=== PATIENT | female | born 1950 | race Caucasian/White ===

== ENCOUNTER 2016-06-01 06:17 | Emergency (ER) | payer OTHER, BC ==
[2016-06-01 06:34] VITALS: BP 149/66
[2016-06-01] MEDS ORDERED: ONDANSETRON 4 MG TAB.RAPDIS PO ONE (06:44)
[2016-06-01] MEDS ORDERED: ONDANSETRON 4 MG TAB.RAPDIS ONE (06:45)
--- NOTE | 2016-06-01 07:23 | ERNOTE ---
Head Injury HPI - General Injury to: head Time Seen by Provider: 06/01/16 06:47 Source: patient Exam Limitations: no limitations - Immun/Allergies/Home Medications Immunization: IMMUNIZATION HX History of Influenza Vaccine No Hx Pneumococcal Vaccination Yes Allergies/Adverse Reactions: Allergies Allergy/AdvReac Type Severity Reaction Status Date / Time No Known Allergies Allergy Verified 06/01/16 06:34 Home Medications: HOME MEDICATIONS Aspirin [Aspirin EC] 81 mg PO HS 12/17/15 [Last Taken 12/16/15] Atorvastatin Calcium 10 mg PO HS 12/17/15 [Last Taken 12/16/15] Hydrochlorothiazide [Hydrodiuril] 25 mg PO DAILY 12/17/15 [Last Taken 12/17/15] Metoprolol Tartrate [Lopressor] 25 mg PO BID 12/17/15 [Last Taken 12/17/15] Nabumetone [Relafen] 500 mg PO BID 12/17/15 [Last Taken 12/17/15] - History of Present Illness Narrative: Walking in the yard at work at [employer] and slipped and hit her head. c/o dizziness and nausea Occurred: this morning Location Occurred: work Severity: mild, moderate Head Injury Location: occipital Method of Injury: Reports: fell Reason for Fall: Reports: slipped Loss of Consciousness: Reports: no loss of consciousness Associated Symptoms: Reports: nausea Review of Systems - Review of Systems Constitutional: Absent: recent illness EYE: Absent: double vision, vision changes ENT: Present: no symptoms reported Respiratory: Present: no symptoms reported Cardiology: Present: no symptoms reported Gastrointestinal/Abdominal: Present: no symptoms reported Genitourinary: Present: no symptoms reported Musculoskeletal: Present: See HPI, other - occipital pain. Absent: back pain, neck pain Neurological: Present: See HPI Endocrine: Present: no symptoms reported Hematologic/Lymphatic: Present: no symptoms reported Psych: Present: no symptoms reported - Patient's Past Medical History Patient History - Medical: No pertinent hx Patient History - Cardiac/Respiratory: Hypertension Patient History - Cancer: Breast Patient History - Surgical Procedures: Cholecystectomy, Other - Social History Living Situations: home Physical Exam - Physical Exam General Appearance: Present: wd/wn, alert, no apparent distress Eye Exam: Normal inspection: bilateral, PERRL: bilateral, EOMI: bilateral Ears, Nose, Throat: Present: normal ENT inspection, hearing grossly normal Neck: Present: normal inspection, nontender, supple Respiratory: Present: no respiratory distress, no accessory muscle use Back Exam: Present: normal inspection, normal range of motion, no vertebral tenderness Extremity Exam: Present: other - minmal tenderness of left forearm. no point tenderness Neurological Exam: Present: alert, oriented, normal mood/affect, no motor/ sensory deficits, joint creaser II-XII nml as tested Skin Exam: Present: normal color, warm/dry, other - hematoma/ abrasion on superior occipital scalp. no tenderness around the location ED Progress - Vital Signs Vital Signs: Vital Signs 06/01/16 06:29 Temperature 36.8 C Pulse Rate 53 L Blood Pressure 149/66 O2 Sat by Pulse 96 Oximetry - Progress/Reassessment Chief Complaint: Head Injury Progress Note-Subjective: 06/01/16 07:20 I did discuss with the patient and co-worker that brought her in that she would not need a CT of her head for this injury. They were a little bit skeptical but seemed to accept the explanation of her having no neurologic abnormalities Departure Clinical Impression: Head injury, acute, without loss of consciousness Qualifiers: Encounter type: initial encounter Qualified Code(s): S09.90XA - Unspecified injury of head, initial encounter - Departure Disposition: Home Follow Up Needed Condition: Good Instructions: Hematoma, [id number] Additional Instructions: See occupational health in the next few days to check on your progress. Watch for confusion, numbness or tingling Referrals: Elizabeth Lowe, TITLE CAMERA OPERATOR [Primary Care Provider] -
== END 2016-06-01 07:24 | disposition home or self-care (01) ==
LOC: ER 06:17
DX: S09.90XA Unspecified injury of head, initial encounter (principal); Z85.3 Personal history of malignant neoplasm of breast; Z90.49 Acquired absence of other specified parts of digestive tract; I10 Essential (primary) hypertension; W01.0XXA Fall on same level from slipping, tripping and stumbling without subsequent striking against object, initial encounter; Y93.01 Activity, walking, marching and hiking; Y92.147 Courtyard of prison as the place of occurrence of the external cause; Y99.0 Civilian activity done for income or pay

== ENCOUNTER 2016-06-02 09:33 | Emergency (ER) | payer OTHER, BC ==
[2016-06-02 10:01] LABS: Hematocrit 41.6 % (37.0-47.0); Hemoglobin 14.2 gm/dL (12.5-16.0); Mean Cell Volume 85.4 fl (78-100); Mean Corpuscular Hemoglobin 29.2 pg (27-31); Mean Corpuscular Hgb Conc 34.1 g/dl (32-36); Neutrophil # 8.4 K/mm3 (1.3-6.0); Neutrophil % 74.1 % (42-75.0); Platelet Count 273 K/mm3 (150-450); Red Blood Count 4.87 M/mm3 (4.2-5.4); White Blood Count 11.3 K/mm3 (4.0-10.5)
[2016-06-02 10:13] LABS: INR 1.05 INR (0.90-1.10); Partial Thrombolplastin Time 26.1 Seconds (24-32); Prothrombin Time (Patient) 10.9 Seconds (9.4-11.4)
[2016-06-02 10:28] LABS: ALT 22 U/L (19-67); AST 16 U/L (0-48); Albumin * 3.3 gm/dl (3.4-5.0); Alkaline Phosphatase * 71 U/L (50-170); Anion Gap 14.8 mmol/L (6.8-13.8); Blood Urea Nitrogen 23 mg/dL (3-23); Ca. Corrected For Albumin 9.3 mg/dL (8.4-10.2); Calcium * 9.1 mg/dL (7.9-10.9); Carbon Dioxide 26.6 mmol/L (24-32.6); Chloride 102 mmol/L (97-106); Glucose * 199 mg/dL (70-110); Potassium 3.4 mmol/L (3.4-4.6); Sodium 140 mmol/L (132-142); Total Protein 7.4 gm/dL (6.2-8.2); Troponin I Less than 0.017 ng/ml (0.00-0.10)
--- NOTE | 2016-06-02 10:47 | ERNOTE ---
Dizziness ER Record Date of Service: 06/02/16 Presenting Symptoms: dizziness Time Seen by Provider: 06/02/16 09:36 Source: patient Exam Limitations: no limitations Immunizations: IMMUNIZATION HX Immunizations Up to Date Yes History of Influenza Vaccine Yes Hx Pneumococcal Vaccination Yes Allergies/Adverse Reactions: Allergies Allergy/AdvReac Type Severity Reaction Status Date / Time No Known Allergies Allergy Verified 06/01/16 06:34 Home Medications: HOME MEDICATIONS Aspirin [Aspirin EC] 81 mg PO HS 12/17/15 [Last Taken 12/16/15] Atorvastatin Calcium 10 mg PO HS 12/17/15 [Last Taken 12/16/15] Hydrochlorothiazide [Hydrodiuril] 25 mg PO DAILY 12/17/15 [Last Taken 12/17/15] Metoprolol Tartrate [Lopressor] 25 mg PO BID 12/17/15 [Last Taken 12/17/15] Nabumetone [Relafen] 500 mg PO BID 12/17/15 [Last Taken 12/17/15] Calcium Carbonate [Tums] 500 mg PO DAILY 06/02/16 [Last Taken Unknown] Potassium Chloride [K-Dur] 20 meq PO DAILY 06/02/16 [Last Taken Unknown] - History of Present Illness Narrative: Patient comes after a fall and hitting her head on the cement. Patient reported no LOC, no chest pain, and changes on vision. Patient informed that her condition gets worse with she gets up or move her head. At the moment patient denies any loss of force or sensation Date (Duration): 06/01/16 Timing and Duration: still present, intermittent Noted on awakening:: Yes Severity: max: moderate Severity: currently: moderate Associated Symptoms: Present: nausea, other - Sence of rotation and moving. Absent: hearing loss, ringing/roaring in ear, ear pain, vomiting, headache, weakness, numbness, sweating, light headedness, sense of confusion Sense of movement: Present: spinning Fainted/near fainted while:: Absent: standing, sitting, supine Decreased ability to stand/walk:: Present: off balance. Absent: weak, cannot walk, falling, bed-ridden, unable to sit Usually:: Present: walks w/o assistance Modifying Factors - (Improves): Reports: other - rest and avoiding moving her head. Denies: changing position, movement of head, standing position Modifying Factors - (Worsens): Reports: changing position, movement of head, standing position Prior Treament: Reports: recently seen - Patient was seen at the ER and was discharged Review of Systems - Review of Systems Constitutional: Present: malaise. Absent: fever, chills, diaphoresis, weakness EYE: Absent: double vision ENT: Absent: ear pain, ear discharge, pulling on ears, nose pain, nose congestion, nasal drainage, sore throat Respiratory: Absent: shortness of breath, cough, orthopnea, wheezing Cardiology: Absent: chest pain, palpitations, syncope, edema, claudication Gastrointestinal/Abdominal: Absent: nausea, vomiting, diarrhea Genitourinary: Present: no symptoms reported Musculoskeletal: Present: muscle pain - Patient with , muscle stiffness. Absent : neck pain, joint pain, joint swelling Neurological: Present: headache, dizziness/light-headedness. Absent: seizure Endocrine: Present: no symptoms reported Hematologic/Lymphatic: Absent: easy bruising, easy bleeding Psych: Absent: anxiety, depressed - Patient's Past Medical History Patient History - Medical: No pertinent hx Patient History - Cardiac/Respiratory: Hypertension Patient History - Cancer: Breast Patient History - Surgical Procedures: Cholecystectomy, Other - Social History Living Situations: home Physical Exam - Physical Exam General Appearance: Present: alert, no apparent distress, obese. Absent: lethargic Eye Exam: Normal inspection: bilateral, PERRL: bilateral, EOMI: bilateral Ears, Nose, Throat: Present: normal ENT inspection, hearing grossly normal, normal pharynx Neck: Present: normal inspection, nontender, supple, full range of motion. Absent: carotid bruit Respiratory: Present: no respiratory distress, normal breath sounds, no accessory muscle use, chest nontender, lungs clear Cardiovascular/Chest: Present: regular rate, rhythm, normal peripheral pulses, systolic murmur Peripheral Pulses: N=norm/S=strong/W=weak/B=bound/A=absent: Carotid (R): Normal , Carotid (L): Normal, Radial (R): Normal, Radial (L): Normal, Dorsalis-pedis (R ): Normal, Dorsalis-pedis (L): Normal Gastrointestinal/Abdominal: Present: normal bowel sounds, nontender, nondistended, no organomegaly Back Exam: Present: normal inspection, normal range of motion, no CVA tenderness , no vertebral tenderness Neurological Exam: Present: alert, oriented, normal mood/affect, no motor/ sensory deficits, coding analyst II-XII nml as tested, other - +[place], +Nystagmus Vertical. Absent: facial droop, motor weakness, disoriented to person, disoriented to time, disoriented to place, disoriented to situation DTR: N=norm/NB=norm/brisk/A=abs/DD=dull/dimin/HC=hyperactive: Bicep (R): Normal , Bicep (L): Normal, Knee (R): Normal, Knee (L): Normal Skin Exam: Absent: diaphoresis, cyanosis, jaundice, pallor, skin rash Lymphatic Exam: Present: no adenopathy ED Progress - Date and Time Seen: Date and Time: 06/02/16 10:41 GCS: 15/15 NIH Stroke Scale: 0 Patient with at the moment was found with an intra cranial bleed and subdural hematoma. Patient's case was presented to Dr. Richard Ramírez at the . Patient at the moment is stable for transfer. - Results and Orders Patient's Lab Results:: I have reviewed the patient's lab results. Results and Orders: Normal coagulation, CBC, and CMP - Vital Signs Patient's Vital Signs:: I have reviewed the patient's vital signs. Vital Signs: Vital Signs 06/02/16 06/02/16 06/02/16 07:58 09:37 09:56 Temperature 36.5 C Pulse Rate 70 66 Respiratory 16 Rate Blood Pressure 149/66 131/69 O2 Sat by Pulse 97 Oximetry - EKG EKG: NSR EKG read: Interp. by me EKG Comments: HR: 66, LAD, LVH, No ST Elevation, No change from previous EKG - X-Ray X-Ray #1 X-Ray: chest X-ray Comments: No pathology reported by radiology - CT/Ultrasound CT/Ultrasound Narrative: CT report was noticed. Patient has a positive bleed. - Progress/Reassessment Chief Complaint: Dizziness Progress:: Unchanged - Transfer of Care Expected Disposition: Transfer Plan - Plan Plan: Transfer for Neurosurgical Services at the Departure Clinical Impression: Subdural hematoma, Intracranial bleed - Departure Disposition: [facility] Condition: Stable Referrals: Elizabeth Lowe, AUTOMOBILE BUMPER STRAIGHTENER [Primary Care Provider] -
[2016-06-02 11:07] VITALS: BP 150/70
== END 2016-06-02 11:25 | disposition short-term general hospital (02) ==
LOC: ER 09:33
DX: S06.5X0A Traumatic subdural hemorrhage without loss of consciousness, initial encounter (principal); W19.XXXA Unspecified fall, initial encounter

== ENCOUNTER 2017-04-18 08:08 | Day surgery (SDC) | payer BC ==
[~2017-04-18 08:08] MED LIST: RINGER'S SOLUTION,LACTATED 1,000 ML IV PRN; ceFAZolin SODIUM 1 GM VIAL IV PRN
[2017-04-18] MEDS ORDERED: RINGER'S SOLUTION,LACTATED 1,000 ML IV ONE (08:45)
[2017-04-18] MEDS ORDERED: BUPIVACAINE HCL 50 ML VIAL IJ ONE (09:19)
--- NOTE | 2017-04-18 09:34 | OR ---
Operative Report - Dictated Report Narrative: Date: 04/18/2017 Physician: Wisam Kaba M.D. Metal Fabricator: Sam Leal PA-C Preoperative diagnosis: Left trigger thumb Postoperative diagnosis: Left trigger thumb Procedure: Left thumb A1 ulices release Anesthesia: MAC Plus local Complications: None Estimated blood loss: Minimal Tourniquet time: 9 Minutes @ 250 mmHg Specimens: None Retained implants: None Drains: None Indications: Leticia Is a 66 year-old female who has been followed in my clinic with complaints of trigger finger. Physical exam as demonstrated triggering of the finger. Conservative measures have failed including but not limited to passage of time, activity modification, medications, and injections. The risks, benefits, and alternatives were discussed in clinic. The risks being bleeding, infection, nerve, tendon, blood vessel injury, persistent pain, wound competitions, need for additional procedures, and persistent symptoms. Consent was obtained in the clinic. Procedure: After marking the correct extremity in the preoperative holding area, a timeout was performed in the operating room. IV antibiotics consisting of 2 g of Ancef were administered prior to the procedure. A well-padded tourniquet was applied to the operative upper arm. The arm was exsanguinated and the tourniquet was inflated to 250 mmHg. 0.5% Marcaine without epinephrine was infused into the projected incision site at the palmar flexion crease over the metacarpal phalangeal joint in line with the digit. Using loupe magnification, a transverse incision in the appropriate palmar flexion crease in line with the digit. Blunt dissection was carried down through the subcutaneous tissues using bipolar cautery for hemostasis. Care was taken to protect the digital nerves. Staying midline along the flexor tendon, the A1 ulices was identified. A avis was made in the proximal edge of the A1 ulices with a 15 blade scalpel and tenotomy scissors were utilized in order to completely transect the A1 ulices. Care was to stay midline and avoid transection of the A2 ulices. Soft tissues overlying the flexor tendon proximal to the A1 ulices were also released ensuring that there were no other compressive structures contributing to the triggering. The finger was placed through range of motion and demonstrated no additional catching. The tendons were visualized and mobilized out of the wound, and did not demonstrate any gross pathology or masses that required debridement. The tendons were noted to be intact. Once it was felt that we had adequately decompressed the flexor tendons as they passed under the A1 ulices, the tourniquet was removed. Hemostasis was obtained with pressure and bipolar cautery. There was good return of color and capillary refill to the digit. Additional half percent Marcaine without epinephrine was infused into the skin edges. The wound was thoroughly irrigated. The skin was closed with interrupted 4-0 nylon. Sterile dressings consisting of Xeroform, 4 x 4, and True were applied. All sponge, needle, blade, and instrument counts were correct prior to closing the wounds. The patient was awoken and transferred to the post-anesthesia care unit in stable condition.
[2017-04-18 10:29] VITALS: BP 146/63
== END 2017-04-18 08:09 | disposition home or self-care (01) ==
LOC: AMB 08:08
PROVIDERS: ATTEND Orthopaedic Surgery
PROC: 0LN80ZZ Release Left Hand Tendon, Open Approach (ICD-10-PCS; principal; 2017-04-18 09:30)
DX: M65.312 Trigger thumb, left thumb (principal); I10 Essential (primary) hypertension; E78.5 Hyperlipidemia, unspecified; E03.9 Hypothyroidism, unspecified; E11.9 Type 2 diabetes mellitus without complications; K21.9 Gastro-esophageal reflux disease without esophagitis; Z68.41 Body mass index [BMI] 40.0-44.9, adult